=== PATIENT | female | born 2000 | race Caucasian/White ===

== ENCOUNTER 2023-09-29 11:58 | Outpatient (RCR) | payer OTHER, MEDICAID, SELFPAY ==
[2023-09-26 12:25] VITALS: BP 128/78; PULSE 75
[2023-09-29 15:09] VITALS: BP 133/80; PULSE 68
== END 2023-11-11 13:25 | disposition home or self-care (01) ==
LOC: ANHOBOP 11:58
PROVIDERS: Visit Provider Obstetrics & Gynecology
DX: O43.113 Circumvallate placenta, third trimester (principal); Z3A.38 38 weeks gestation of pregnancy; Z3A.39 39 weeks gestation of pregnancy
CPT/HCPCS: 59025

== ENCOUNTER 2023-09-30 16:59 | Inpatient (IN) | payer OTHER, MEDICAID, SELFPAY ==
[2023-09-30] VITALS (13 sets, daily range): BP systolic 111–131; BP diastolic 60–82; PULSE 62–100; TEMP 36.2–36.9; BMI 40.3
[2023-09-30 17:50] LABS: Basophils Percent Auto 0.3 % (0.2-1.2); Eosinophils Percent Auto 0.2 % (0-4.4); Hemoglobin 12.5 g/dL (12.0-15.0); Immature Granulocyte Absolute 0.04 K/mm3 (0.00-0.031); Immature Granulocyte Percent A 0.4 % (0-0.5); Lymphocytes Absolute Auto 1.58 K/mm3 (0.9-3.2); Lymphocytes Percent Auto 14.7 % (18.3-44.2); Mean Corpuscular HGB Conc 33.8 g/dl (32-36); Mean Corpuscular Hemoglobin 29.9 pg (26-34); Mean Corpuscular Volume 88.5 fl (80-100); Mean Platelet Volume 12.4 fl (7.4-10.4); Monocytes Absolute Auto 0.9 K/mm3 (0.1-0.6); Monocytes Percent Auto 8.5 % (2.6-8.5); Neutrophils Absolute Auto 8.2 K/mm3 (1.3-6.7); Neutrophils Percent Auto 75.9 % (45.5-73.1); Platelet Count Result 208 k/mm3 (150-375); Red Blood Count 4.18 M/mm3 (4.2-5.4); Red Cell Distribution Width 13.1 % (11.5-14.5); White Blood Count 10.8 K/mm3 (4.5-10.0)
[2023-09-30] MEDS: miSOPROStol 25 MCG TABLET 50 MCG BUCCAL ×2 (18:38→23:13)
[2023-09-30 18:39] LABS: HIV 1/2 Ab P24 Ag Result Negative (Negative)
[2023-10-01] VITALS (269 sets, daily range): BP systolic 80–155; BP diastolic 48–105; PULSE 25–170; RESP 16–18; TEMP 36.3–37.3; O2SAT 76–100
[2023-10-01] MEDS: miSOPROStol 25 MCG TABLET 50 MCG BUCCAL (03:15)
--- NOTE | 2023-10-01 06:21 | LDADM ---
This patient, Parris Hernandez, was admitted to Labor/Delivery/Recovery 106 on 09/30/23 at 16:59. Plans for pain management and were discussed with patient. Patient/family oriented to hospital policies and general routines including ID bracelet, bed and alarms, visiting hours, pain management, procedures, bathroom and other care routines, personal items, smoking policy, room service/diet and guest tray routines, infant security routines, and visiting hours. Patient/Family are encouraged to report perceived risks to care and to ask questions if they do not understand what they are told or what they should do. See OBIX for further documentation.
--- NOTE | 2023-10-01 07:31 | WPDOBADMIT ---
Obstetrics - Admit Note Admission Note: record reviewed. No pertinent additions to the history and/or any subsequent changes in the physical findings that are not consistent with the expected course of the were found. Additions to the history and/or subsequent changes in the physical findings follow. Admit for elective IOL, SVE /-2 arom clear odorless fluid
[2023-10-01] MEDS: LACTATED RINGERS 1,000 ML 125 ML IV CONT ×2 (08:23→19:50)
[2023-10-01] MEDS: OXYTOCIN 30 UNITS/NS 500 ML 30 UNITS/500 ML BAG IV CONT (08:24)
[2023-10-01] MEDS: CALCIUM CARBONATE (TUMS) 500 MG (200 MG ELEMENTAL) PO (08:33)
[2023-10-01] MEDS: fentaNYL CITRATE INJ (*CRX) 100 MCG/2 ML VIAL IV PUSH ×2 (11:20→21:57)
[2023-10-01] MEDS: OXYTOCIN 30 UNITS/NS 500 ML 30 UNITS/500 ML BAG 125 UNITS IV CONT (22:07)
--- NOTE | 2023-10-01 22:10 | PM.OBPRVD ---
OB - Vaginal Delivery Note Procedure Delivery date: 10/01/23 Induction method: AROM, Per Misoprostol Protocol and Per Pitocin Protocol Delivery monitor: External FHT and Internal Uterine Route of delivery: Episiotomy description: None Laceration Description: Perineal - 2nd Degree Delivery repair: vicryl Specimen: No Quantitative Blood Loss (ml): 75 Anesthesia type: Epidural Disposition: Floor Complications: Other complications Baby Date of : 10/01/23 Time of : 21:48 Weeks of gestation at delivery: 39 gender: Male Weight (pounds): 7 Weight (ounces): 8 presentation: vertex position: Left Occiput Anterior Placenta delivery description: Spontaneous Cord Vessel Description: 3 Vessels, Clamped/Cut and Delayed Cord Clamping score one minute: 8 score five minutes: 9 Narrative: mother and baby in stable condition
[2023-10-01] MEDS: BENZOCAINE 20% AER SPR (*SP) 56 GM CAN 1 SPRAY TOPICAL (23:48)
[2023-10-01] MEDS: WITCH HAZEL 40 PADS 1 PAD TOPICAL (23:48)
[2023-10-01] MEDS: IBUPROFEN 600 MG TABLET PO (23:48)
[2023-10-02] VITALS (13 sets, daily range): BP systolic 99–140; BP diastolic 50–97; PULSE 66–97; RESP 16–18; TEMP 36.6–37; O2SAT 98–99
--- NOTE | 2023-10-02 00:50 | OBPPTRN ---
Patient transferred to post room #292 via w/c. Support person present. Oriented to unit, room, information board, rooming in, admission packet and security measures. Patient verbalizes understanding.
[2023-10-02] MEDS: ACETAMINOPHEN 325 MG TABLET 650 MG PO (04:30)
[2023-10-02 06:00] LABS: Hematocrit 30.1 % (37.0-47.0); Hemoglobin 10.2 g/dL (12.0-15.0)
[2023-10-02] MEDS: IBUPROFEN 600 MG TABLET PO ×2 (09:34→19:45)
[2023-10-02 13:46] LABS: Rapid Plasma Reagin Non-Reactive (NonReactive)
--- NOTE | 2023-10-02 14:09 | WPDANLDPN2 ---
Anes-Prog Note L&D Date/Time: 10/02/23 14:09 Comfortable throughout: labor and delivery Neuraxial method: epidural Epidural/Spinal procedure site: clean & non-tender Neuro status: Neuro function grossly intact. Cardiovascular status: normal Respiratory status: normal Airway patency: baseline Mental status: baseline Post-Op hydration status: normal Vital Signs: Last Vital Signs Temp 36.8 C 10/02/23 08:05 Pulse 66 10/02/23 08:05 Resp 18 10/02/23 08:05 BP 104/50 L 10/02/23 08:05 Pulse Ox 99 10/02/23 08:05 O2 Del Method Room Air 10/02/23 01:10 Pain score (VAS): 1 I/O: Intake & Output 10/01/23 10/02/23 10/02/23 23:59 07:59 15:59 Intake Total 1000 Output Total 75 100 Balance 925 -100 Post-procedural complaints: none Patient feedback: Patient satisfied with anesthetic care.
--- NOTE | 2023-10-02 21:36 | PM.OBPNVD ---
OB - PN: Subj Subjective Date/time seen: 10/02/23 21:36 Patient comments: no complaints, pain well controlled, incisional pain, tolerating diet and flatus present OB - PN: Obj Data Labs 10/02/23 04:34 Labs: Laboratory Results - last 24 hr 09/30/23 10/02/23 17:20 04:34 Hgb 10.2 L Hct 30.1 L RPR Non-reactive OB - PN A/P Plan day: 1 Plan: routine care Comments: No problems, routine care Time Spent With Patient Time: Total time spent is greater than 50% in coordination of care (as documented) at patient's floor/unit and/or counseling patient: Exam Const: General: comfortable, no acute distress and alert Resp: Effort & Inspection: normal respiratory effort Auscultation: no crackles, no rales and no rhonchi Cardio: Rate: regular rate Heart sounds: no click, no murmurs and no rubs GI: Inspection: non-distended GI Palp: No Tenderness to palpation present (GI) Auscultation: normal bowel sounds Other: Incision - CDI Extrem: General: normal to inspection, no pedal edema and no calf tenderness
[2023-10-03 07:40] VITALS: BP 128/73; PULSE 74; RESP 16; TEMP 36.5; O2SAT 100
--- NOTE | 2023-10-03 07:45 | PM.OBPNVD ---
OB - PN: Subj Subjective Date/time seen: 10/03/23 07:45 Interval history: pp day 2 bottle feeding desires d/c home OB - PN: Obj Data Labs 10/02/23 04:34 Labs: Laboratory Results - last 24 hr 09/30/23 17:20 RPR Non-reactive OB - PN A/P Assessment and Plan (1) Vaginal delivery: Code(s): O80 - Encounter for full-term uncomplicated delivery Status: Acute Plan day: 2 Plan: routine care and discharge home Time Spent With Patient Time: Total time spent is greater than 50% in coordination of care (as documented) at patient's floor/unit and/or counseling patient: Review of Systems Review of Systems: All systems reviewed & are unremarkable except as noted in HPI and below Exam Const: General: cooperative and healthy appearing Resp: Effort & Inspection: normal respiratory effort Cardio: Rate: regular rate Rhythm: regular rhythm Skin: General skin exam: normal color Extrem: General: normal to inspection
--- NOTE | 2023-10-03 07:47 | PM.OBDSVD ---
DS: Admitting Diagnosis Discharge Date 10/03/23 Admitting Diagnosis IOL DS: Discharge Diagnosis Discharge Diagnosis (1) Vaginal delivery: Code(s): O80 - Encounter for full-term uncomplicated delivery Status: Acute OB - DS: Summary OB Procedures : None OB Procedures Intrapartum: Spontaneous Vag Delivery OB Procedures: : None Peripartum Data Laceration Description: Perineal - 2nd Degree Episiotomy description: None Time Spent with Patient Time attestation: Total time spent providing and/or coordinating discharge services: DS: Data Data Completed and Pending Labs on day of discharge: Labs from last 24 hours 09/30/23 17:20 RPR Non-reactive Discharge Plan Discharge Attending physician on discharge: Joss Plasencia Discharging Clinician: Sharita Barney Patient Disposition: Home, Self-Care Activity: pelvic rest Diet: regular Patient Instructions: Antibiotic Form Stand Alone Forms: General Discharge Information Follow-up/Referrals: Sharita Barney, CNM [Certified Nurse Relations Director] - 4 Weeks Discharge Medications: New ibuprofen 600 mg Tablet 600 mg PO Q6H PRN (Reason: Cramping) Qty: 30 0RF Date of admission: 09/30/23 16:59 Primary Care Provider: PHYSICIAN,MICROSTRATEGY REPORTS DEVELOPER Admitting Provider: Joss Plasencia Attending physician on admission: Joss Plasencia Condition: Stable
[2023-10-03] MEDS: IBUPROFEN 600 MG TABLET PO (08:13)
[2023-10-03] MEDS: TETANUS,DIPHTHERIA,AC PERTUSSIS ADULT (0.5 ML) BOOSTRIX IM (08:13)
[2023-10-04 09:15] VITALS: BP 124/68; PULSE 91; RESP 18; TEMP 37.9; O2SAT 100
== END 2023-10-03 15:10 | disposition home or self-care (01) | DRG 807 ==
LOC: ANHLDR 17:04 → ANHOB2 10-02 01:21
PROVIDERS: Advanced Practice Midwife; Admitting Provider Obstetrics & Gynecology; Visit Provider Obstetrics & Gynecology
DX: O70.1 Second degree perineal laceration during delivery (principal); Z37.0 Single live birth; Z3A.39 39 weeks gestation of pregnancy
CPT/HCPCS: 36415; 85014; 85018; 85025; 86592; 86703; 86850; 86900; 86901; 90715; A9270; G0432; J2590; J2795; J3010; J7120